=== PATIENT | male | born 2000 | race Caucasian/White ===

== ENCOUNTER 2019-03-17 10:29 | Emergency (ER) | payer OTHER ==
[~2019-03-17] VITALS: Ht 193 cm; Wt 68.0 kg
[2019-03-17 10:34] VITALS: BP 144/77
== END 2019-03-17 11:11 | disposition home or self-care (01) ==
LOC: ED 11:00
DX: K02.9 Dental caries, unspecified (principal); K08.89 Other specified disorders of teeth and supporting structures; Z88.0 Allergy status to penicillin
CPT/HCPCS: 99283

== ENCOUNTER 2019-12-30 22:02 | Emergency (ER) | payer MEDICAID, OTHER ==
[~2019-12-30] VITALS: Ht 193 cm; Wt 65.0 kg
[2019-12-30 22:03] VITALS: BP 127/88
--- NOTE | 2019-12-30 22:13 | NUR ---
Patient BIB [facility] for an OD. Patient was at work and was found by his coworkers unconscious with a needle in his arm. Coworkers were unable to arouse him. Upon EMS arrival, patient woke up and he was AAOx4, GCS 15. Patient stated the drugs he was using was heroin possibly with meth. Patient states he is on psych medication which he has been out of therefore he has turned to drugs to cope. Patient is in NAD. Respirations even and unlabored.
--- NOTE | 2019-12-30 23:33 | NUR ---
Discharge instructions given. All questions and concerns addressed. Patient ambulatory with a steady gait. Belongings with patient.
== END 2019-12-30 23:35 | disposition home or self-care (01) ==
LOC: ED 23:02
DX: T40.1X1A Poisoning by heroin, accidental (unintentional), initial encounter (principal); F17.210 Nicotine dependence, cigarettes, uncomplicated; Y92.89 Other specified places as the place of occurrence of the external cause
CPT/HCPCS: 93005; 99283; 99406

== ENCOUNTER 2020-02-06 15:51 | Emergency (ER) | payer MEDICAID ==
[~2020-02-06] VITALS: Ht 193 cm; Wt 60.0 kg
[2020-02-06 15:54] VITALS: BP 145/78
--- NOTE | 2020-02-06 16:10 | NUR ---
THIS IS A 19 YO MALE BIB [facility], PATIENT RAN CAR INTO [employer]CRETE SIDEWALK AT APPROX 10MPH, NO SEATBELT. PER [facility], PATIENT HAD TAKEN ABOUT A GRAM OF HEROIN AT APPROX 1500, PATIENT WAS FOUND AT 25%, GCS OF 3. 0.5MG NARCAN GIVEN, PATIENT AROUNSED AFTER THAT. BGL OF 176 IN FIELD. PIV PLACED BY [facility]. PATIENT IS A&OX4 AT THIS TIME, PLACED ON 1.5L NC DUE TO SPO2 OF 88%. [employer] IN ROOM AT THIS TIME. ALL MONITORING IN PLACE, SINUS TACHYCARDIC ON MONITOR. ALL OTHER VSS, NAD AT THIS TIME. CALL LIGHT IN REACH
--- NOTE | 2020-02-06 16:14 | NUR ---
ERP TO ROOM FOR EVAL
[2020-02-06] MEDS ORDERED: SERT50TA28 PO (16:15)
[2020-02-06] MEDS ORDERED: QUET100T4 PO (16:15)
[2020-02-06] MEDS ORDERED: RISP2TAB3 PO (16:16)
[2020-02-06] MEDS ORDERED: TRAZ150T62 PO (16:16)
== END 2020-02-06 17:06 | disposition home or self-care (01) ==
LOC: ED 17:00
DX: S06.9X1A Unspecified intracranial injury with loss of consciousness of 30 minutes or less, initial encounter (principal); T40.1X1A Poisoning by heroin, accidental (unintentional), initial encounter; V47.0XXA Car driver injured in collision with fixed or stationary object in nontraffic accident, initial encounter; Y93.89 Activity, other specified; Y92.488 Other paved roadways as the place of occurrence of the external cause; Y99.8 Other external cause status; Y92.89 Other specified places as the place of occurrence of the external cause
CPT/HCPCS: 99283

== ENCOUNTER 2020-02-20 05:09 | Emergency (ER) | payer MEDICAID ==
[~2020-02-20] VITALS: Ht 193 cm; Wt 71.8 kg
[~2020-02-20 05:09] MED LIST: QUET100T4 PO; RISP2TAB3 PO; SERT50TA28 PO; TRAZ150T62 PO
--- NOTE | 2020-02-20 05:30 | NUR ---
PT AMBULATED BACK TO ROOM WITH A SMOOTH AND STEADY GAIT, NAD, RESP WNL, P/W/D, FCS no SOB NOTED, WCTM. CALL LIGHT ON LAP.
--- NOTE | 2020-02-20 05:31 | NUR ---
HAILEE BALLARD AT BS FOR EVAL AND DISCUSSING POC.
--- NOTE | 2020-02-20 05:39 | NUR ---
pt ambulated with a smooth and steady gait to and from the restroom.
[2020-02-20 05:53] VITALS: BP 134/83
--- NOTE | 2020-02-20 05:54 | NUR ---
Patient given discharge instructions and they have confirmed that they understand the instructions. Patient ambulatory with steady gait. PT DENIES ADDITIONAL QUESTIONS AT THIS TIME. NAD, RESP WNL, SKIN WNL WARM AND DRY.
== END 2020-02-20 05:55 | disposition home or self-care (01) ==
LOC: ED 05:30
DX: L20.9 Atopic dermatitis, unspecified (principal); J02.9 Acute pharyngitis, unspecified
CPT/HCPCS: 99283

== ENCOUNTER 2021-03-01 10:08 | Observation (INO) | payer MEDICAID ==
[~2021-03-01] VITALS: Ht 193 cm; Wt 73.4 kg
[~2021-03-01 10:08] MED LIST changes: -RISP2TAB3 PO; +RISP2TAB80 PO
[2021-03-01] MEDS ORDERED: NALOXONE 0.4 MG/ML, 1ML ONE ×2 (10:12→10:13)
[2021-03-01] MEDS ORDERED: NALOXONE 1 MG/ML, 2ML IVPush ONE (10:30)
--- NOTE | 2021-03-01 10:30 | NUR ---
PT WAS A CODE 250. WAS DROPPED OFF OUT FRONT BY 2 OTHER MEN WHO WERE SCREAMING "HE OVERDOSES ON HEROIN". PT WAS CYANOTIC AND APNEIC. CODE BLUE WAS CALLED AT 1003. CPR INITIATED. IV STARTED. 0.4MG NARCARN ADMINISTERED. 1007 PT SKIN BEGAN TO TURN PINK AND PT BEGAN TO BREATH ON HIS OWN . PT CURRENTLY AOX4. EKG COMPLETE. LABS DRAWN. PT RESTING IN [facility]. 97% ROOM AIR
[2021-03-01 10:32] LABS: BASOPHILS % (AUTO) 1 % (0-1); EOSINOPHILS % (AUTO) 1 % (1-7); LYMPHOCYTES % (AUTO) 46 % (22-44); MEAN CORPUSCULAR HEMOGLOBIN 29.5 pg (27.5-34.5); MEAN CORPUSCULAR HGB CONC 33.4 g/dL (33.2-36.2); MEAN PLATELET VOLUME 8.6 fL (7.4-10.4); MONOCYTES % (AUTO) 11 % (2-9); NEUTROPHILS % (AUTO) 42 % (42-75); PLATELET COUNT 284 x10^3/uL (130-400); RED BLOOD COUNT 5.18 x10^6/uL (4.38-5.82); RED CELL DISTRIBUTION WIDTH 14.1 % (9.4-14.8)
[2021-03-01 10:41] LABS: ALANINE AMINOTRANSFERASE 70 U/L (12-78); ALBUMIN 4.2 g/dL (3.4-5.0); ANION GAP 6 mmol/L (5-15); CALCIUM 8.9 mg/dL (8.5-10.1); CHLORIDE 105 mmol/L (98-107); CREATININE 1.16 mg/dL (0.7-1.3)
[2021-03-01 10:43] LABS: ALKALINE PHOSPHATASE 75 U/L (45-117); BILIRUBIN,TOTAL 0.9 mg/dL (0.2-1.0); TOTAL PROTEIN 7.8 g/dL (6.4-8.2)
[2021-03-01 10:45] LABS: SALICYLATE LEVEL < 1.7 mg/dL (2.8-20.0)
--- NOTE | 2021-03-01 10:50 | NUR ---
BLANKET PROVIDED. VSS. PT AOX4.
[2021-03-01 10:52] LABS: MD SCAN
[2021-03-01] MEDS ORDERED: POTASSIUM CHLORIDE 20 MEQ PACKET ONE (11:19)
[2021-03-01] MEDS ORDERED: POTASSIUM CHLORIDE 20 MEQ PACKET PO ONE (11:30)
--- NOTE | 2021-03-01 11:47 | NUR ---
HOSPITALIST BEDSIDE FOR ASSESSMENT.
[2021-03-01] MEDS ORDERED: ONDANSETRON 2MG/ML, 2ML IVPush PRN (12:00)
[2021-03-01] MEDS ORDERED: KETOROLAC 30 MG/1 ML IV PRN (12:00)
[2021-03-01] MEDS ORDERED: ACETAMINOPHEN 325 MG TABLET PO PRN (12:00)
[2021-03-01] MEDS ORDERED: NALOXONE 0.4 MG/ML, 1ML IVPush PRN (12:00)
[2021-03-01] MEDS ORDERED: DOCUSATE 100 MG CAPSULE PO PRN (12:00)
[2021-03-01] MEDS ORDERED: MELATONIN 5 MG TABLET PO PRN (12:00)
[2021-03-01] MEDS ORDERED: hydrALAzine 20 MG/ML, 1ML IVPush PRN (12:00)
[2021-03-01 12:32] LABS: FREE T4 (FREE THYROXINE) 1.17 ng/dL (0.76-1.46)
[2021-03-01 12:44] VITALS: BP 138/84
[2021-03-01] MEDS ORDERED: POTASSIUM CHLORIDE 20 MEQ TAB.ER.PRT PO ONE (14:00)
[2021-03-01] MEDS ORDERED: THIAMINE 200 MG in SODIUM CHLORIDE 0.9% 50 ML IV ONE (14:00)
[2021-03-01] MEDS ORDERED: NICOTINE 14MG/24 HR PATCH.TD24 TD SCH (14:00)
[2021-03-01 14:45] VITALS: BP 143/87
[2021-03-01 18:26] VITALS: BP 119/68
[2021-03-01] MEDS: SODIUM CHLORIDE FLUSH 10ML SYR IVF SCH (21:00)
[2021-03-01] MEDS: FAMOTIDINE 20 MG TABLET PO SCH (22:02)
[2021-03-01] MEDS: DOXYCYCLINE 100MG TABLET PO SCH (22:02)
[2021-03-02 00:53] VITALS: BP 106/62
[2021-03-02 05:43] LABS: BASOPHILS % (AUTO) 1 % (0-1); EOSINOPHILS % (AUTO) 1 % (1-7); LYMPHOCYTES % (AUTO) 33 % (22-44); MEAN CORPUSCULAR HEMOGLOBIN 29.9 pg (27.5-34.5); MEAN CORPUSCULAR HGB CONC 33.9 g/dL (33.2-36.2); MEAN PLATELET VOLUME 8.6 fL (7.4-10.4); MONOCYTES % (AUTO) 11 % (2-9); NEUTROPHILS % (AUTO) 54 % (42-75); PLATELET COUNT 220 x10^3/uL (130-400); RED BLOOD COUNT 4.67 x10^6/uL (4.38-5.82); RED CELL DISTRIBUTION WIDTH 14.2 % (9.4-14.8)
[2021-03-02 05:50] LABS: CHLORIDE 106 mmol/L (98-107)
[2021-03-02 05:55] LABS: ANION GAP 5 mmol/L (5-15); CALCIUM 8.5 mg/dL (8.5-10.1)
[2021-03-02 06:08] LABS: MD NO
[2021-03-02 06:19] VITALS: BP 116/81
[2021-03-02] MEDS ORDERED: LACTATED RINGERS 1,000 ML IVBOLUS ONE (06:30)
[2021-03-02] MEDS: FAMOTIDINE 20 MG TABLET PO SCH (08:58)
[2021-03-02] MEDS: DOXYCYCLINE 100MG TABLET PO SCH (08:58)
[2021-03-02] MEDS: SODIUM CHLORIDE FLUSH 10ML SYR IVF SCH (08:59)
[2021-03-02 11:10] VITALS: BP 120/72
[2021-03-02] MEDS ORDERED: NALO4SPR NAS (11:29)
[2021-03-02 11:35] LABS: AMPHETAMINE SCREEN, URINE Positive (Negative); BENZODIAZEPINE SCREEN, URINE Negative (Negative); CANNABINOID SCREEN, URINE Negative (Negative); METHADONE SCREEN, URINE Negative (Negative); OPIATE SCREEN, URINE Positive (Negative)
[2021-03-02 11:37] LABS: BARBITURATE SCREEN, URINE Negative (Negative); COCAINE SCREEN, URINE Negative (Negative)
== END 2021-03-02 13:54 | disposition home or self-care (01) ==
LOC: EDBD → MERGE 10:08 → ED 11:34 → INTOOBSV 11:56 → EDIP 11:56 → 4WST 12:10 → DCLOUNGE 03-02 13:41
PROVIDERS: ADMIT Hospitalist; ATTEND Hospitalist
DX: T40.1X1A Poisoning by heroin, accidental (unintentional), initial encounter (principal); I46.9 Cardiac arrest, cause unspecified; G93.40 Encephalopathy, unspecified; L03.115 Cellulitis of right lower limb; E87.6 Hypokalemia; R73.9 Hyperglycemia, unspecified; F11.10 Opioid abuse, uncomplicated; F17.210 Nicotine dependence, cigarettes, uncomplicated; Z91.5 Personal history of self-harm; Z88.0 Allergy status to penicillin; Z94.5 Skin transplant status; Z79.899 Other long term (current) drug therapy
CPT/HCPCS: 36415; 36600; 71045; 80048; 80053; 80299; 80307; 80320; 80329; 82803; 83036; 83735; 84100; 84439; 84443; 85025; 92523; 93005; 96365; 96375; 99285; G0378; J2310; J3411; G0480